=== PATIENT | female | born 1950 | race Caucasian/White ===

== ENCOUNTER 2016-12-27 16:40 | Emergency (ER) | payer OTHER, BC, MEDICARE ==
[2016-12-27] MEDS ORDERED: XYLOCAINE 2% HCL 20 ML MDV ONE ×2 (17:18→17:46)
[2016-12-27] MEDS ORDERED: XYLOCAINE 2% HCL 20 ML MDV IJ ONE (17:41)
[2016-12-27] MEDS ORDERED: BACIGUENT PACKET TP ONE (17:47)
--- NOTE | 2016-12-27 17:47 | ERPHSYRPT ---
- History of Present Illness Time Seen by Provider: 12/27/16 17:25 Source: patient Exam Limitations: clinical condition Patient Subjective Stated Complaint: cut her finger on knife at [facility] Triage Nursing Assessment: adalid has 1.2 cm laceration on middle finger of left hand, cap refill immediate, feeling present in finger. laceration is right in bend of finger Physician History: PATIENT SUSTAINED A LACERATION TO LEFT MIDDLE FINGER OFF KNIFE AT STORE. DENIES NUMBNESS, TINGLING OR WEAKNESS IN DIGIT. Occurred: just prior to arrival Method of Injury: incised Quality: constant Severity of Pain-Max: mild Severity of Pain-Current: mild Extremities Pain Location: 3rd finger: left Associated Symptoms: none Allergies/Adverse Reactions: metformin Allergy (Verified 12/27/16 16:56) Home Medications: Atorvastatin Calcium [Lipitor 20MG Tablet] 20 mg PO HS 12/27/16 [History] Valsartan [Diovan] 80 mg PO DAILY 12/27/16 [History] Vit A/Vit C/Vit E/Zinc/Copper [Icaps Areds Formula Tablet] 1 each PO BID [History] Hx Tetanus, Diphtheria Vaccination/Date Given: Yes Hx Influenza Vaccination/Date Given: No Hx Pneumococcal Vaccination/Date Given: No Immunizations Up to Date: Yes - Review of Systems Constitutional: No Symptoms Musculoskeletal: Injury, Other (LACERATION) - Past Medical History Pertinent Past Medical History: Yes Neurological History: No Pertinent History Cardiac History: Hypertension Respiratory History: No Pertinent History Endocrine Medical History: Diabetes Type II GI Medical History: No Pertinent History Psycho-Social History: Anxiety, Depression Female Reproductive Disorders: No Pertinent History - Past Surgical History Past Surgical History: Yes Female Surgical History: Dilation & Curettage - Social History Smoking Status: Current every day smoker Drug Use: none - Nursing Vital Signs Nursing Vital Signs: Initial Vital Signs Pain Intensity 4 - Physical Exam General Appearance: no apparent distress Hand Exam: soft tissue tenderness (THERE IS A 8MM LACERATION VOLAR ASPECT MCP RADIAL ASPECT, NO EVIDENCE OF FOREIGN BODY OR TENDON LACERATION, THERE IS FULL RANGE OF MOTION MCP, PIP AND DIP JOINT) DTR - Upper Extremity Exam: bicep (R): 2+, bicep (L): 2+, tricep (R): 2+, tricep (L): 2+ Neuro/Tendon Exam: normal sensation Mental Status Exam: alert, oriented x 3 SpO2 Interpretation: normal SpO2: 98 Oxygen Delivery: Room Air Procedures - Laceration/Wound Repair Left Hand Wound Location: Left (MIDDLE FINGER) Wound Length (cm): 0.8 Wound's Depth, Shape: linear Wound Explored: clean Irrigated: Yes Hibiclens Prep: Yes Anesthesia: digital block, 2% Lidocaine Volume Anesthetic (ccs): 4 Suture Size/Type: 4-0, nylon Number of Sutures: 3 Sterile Dressing Applied?: Yes Ordered Tests: Medication Summary Discontinued Medications Generic Name Dose Route Start Last Admin Trade Name Kristen PRN Reason Stop Dose Admin Lidocaine HCl Confirm 12/27/16 17:18 Xylocaine 2% Hcl 20 Ml Mdv Administered 12/27/16 17:19 Dose 5 [facility] - Departure Time of Disposition: 18:00 Departure Disposition: Home Clinical Impression: LACERATION LEFT MIDDLE FINGER Condition: Stable Critical Care Time: No Instructions: Care for a Laceration After Repair Additional Instructions: ANTIBIOTIC KEFLEX 500MG EVERY 8 HOURS FOR 7 DAYS. TYLENOL OR MOTRIN FOR PAIN NEEDED. HAVE STITCHES REMOVED AT 10 DAYS. CLEANSE WITH SOAK AND WATER 3-4 TIMES DAILY. WATCH FOR SIGNS OF INFECTION REDNESS, SWELLING OR DRAINAGE. Prescriptions: Cephalexin Mh 500 mg [Keflex 500 mg] 500 mg PO TID #210 capsule
[2016-12-27] MEDS ORDERED: BACIGUENT PACKET ONE (17:49)
[2016-12-27 17:54] VITALS: BP 135/89; PULSE 88
[2016-12-27 17:55] VITALS: O2SAT 98
== END 2016-12-27 18:16 | disposition home or self-care (01) ==
LOC: ED 16:40
PROC: 0HQGXZZ Repair Left Hand Skin, External Approach (ICD-10-PCS; principal; 2016-12-27)
DX: S61.213A Laceration without foreign body of left middle finger without damage to nail, initial encounter (principal); W26.0XXA Contact with knife, initial encounter
CPT/HCPCS: 12001; 99284; A9270-GY

== ENCOUNTER 2017-11-18 05:46 | Day surgery (SDC) | payer MEDICARE ==
[2017-11-18] MEDS ORDERED: DIPRIVAN 200 MG/20 ML IV ONE (05:47)
[2017-11-18] MEDS ORDERED: Ketamine HCl 50 MG/ML IV ONE (05:47)
[2017-11-18] MEDS ORDERED: Lactated Ringers 1,000 ML IV ONE (06:12)
[2017-11-18] MEDS ORDERED: Lactated Ringers 1,000 ML IV SCH (06:30)
--- NOTE | 2017-11-18 08:39 | OP ---
SURGERY DATE/TIME: 11/18/2017 0731 PREOPERATIVE DIAGNOSIS: Screening exam. POSTOPERATIVE DIAGNOSIS: Mild sigmoid diverticulosis otherwise normal colon. PROCEDURE: Colonoscopy. SURGEON: Dr. Barrios. ANESTHESIA: MAC. Medications given by anesthesia department. HISTORY: The patient is a 67 year-old white female presenting now for endoscopic evaluation. She reports she had previous colonoscopy at age 50. No problems were found at that time. The patient now presents for re-evaluation. She was appraised of the risks of the procedure including the risk of perforation, phlebitis, untoward reaction to medication, bleeding and missed lesions. The patient verbalized her understanding and desired to have the procedure performed. DESCRIPTION OF PROCEDURE: The patient was given the medications by the anesthesia department. She had continuous pulse oximetry, ECG monitoring, intermittent blood pressure monitoring and tidal CO2 monitoring during the examination. She was placed in the left lateral decubitus position. A digital rectal examination was performed and revealed normal anal sphincter tone and no masses. The flexible Olympus pediatric colonoscope was used to intubate the rectum. A view of the colon was developed sequentially to the cecum. Upon insertion and withdrawal, including a retroflex view in the rectum was noted a few sigmoid diverticula otherwise no mucosal lesions were encountered. The scope was removed from the patient who tolerated the procedure well and was sent back to OP recovery in good condition. The prep was noted to be fair to good.
[2017-11-18 20:12] VITALS: O2SAT 97
[2017-11-18 20:13] VITALS: BP 122/77; PULSE 62
== END 2017-11-18 09:10 | disposition home or self-care (01) ==
LOC: SDC 05:46
PROVIDERS: ATTEND Family Medicine
DX: Z12.11 Encounter for screening for malignant neoplasm of colon (principal); K57.30 Diverticulosis of large intestine without perforation or abscess without bleeding
CPT/HCPCS: J2704

== ENCOUNTER 2021-06-23 23:21 | Observation (INO) | payer MEDICARE ==
[2021-06-23 23:41] LABS: Absolute Neutrophil Ct (ANC) 11.48 (1.4-6.9); BASOPHIL % 0.2 % (0.0-0.4); Basophil (Absolute #) 0.03 (0-0.4); Eosinophil % 1.6 % (0.00-5.0); Eosinophil (Absolute #) 0.26 (0-0.5); Hematocrit 43.2 % (35-47); Hemoglobin 13.9 gm/dl (12.0-16.0); Lymphocytes % 22.8 % (24.0-44.0); Mean Cell Volume 98.2 fl (78-100); Mean Corpuscular Hemoglobin 31.6 pg (26-32); Mean Corpuscular Hgb Concent. 32.2 g/dl (32-36); Mean Platelet Volume 10.6 fl (7.5-11.0); Monocyte (Absolute #) 1.09 (0.0-1.3); Monocytes % 6.5 % (0.0-12.0); Neutrophil % 68.9 % (36.0-66.0); Platelet Count 260 K/mm3 (150-450); Red Cell Distribution Width 13.9 % (11.5-14.0); White Blood Count 16.7 K/mm3 (4.0-10.5)
[2021-06-24] MEDS ORDERED: BABY ASPIRIN 81 MG CHEW PO ONE
--- NOTE | 2021-06-24 00:01 | ERPHSYRPT ---
- History of Present Illness Time Seen by Provider: 06/23/21 23:22 Patient Subjective Stated Complaint: I was watching tv and I started having a pain between my shoulder blades, then went to my neck and rt arm, then to my c hest and some sob. Triage Nursing Assessment: pt c/o chest pain (more to the rt shoulder area), which first occured around 2130 starting in her shoulder blades, then went to h er neck and rt arm, then to the chest and experienced some sob with it. Pt's pain is improved once arrived at hospital, rating pain a 2, and only has pain to the rt shoulder area at this time. Lungs clear, heart tones reg, abd soft with active bs x4 quad, nontender, no edema noted. Pt has a dry, nonprod cough. Pt also smokes just over 1PPD. Physician History: 70 years old female with history of tobacco abuse, COPD, hypertension presented in the ER with chief complaint of sudden onset of shoulder blade area pain moderate intensity with radiating to the anterior chest, neck and arm without any significant aggravating factors and partial relief after taking nitro. Minimal shortness of breath which is a little worse than usual COPD related. No fever or chills reported. Denies any history of CAD. Timing/Duration: hour(s) (2), constant, sudden, improved Activities at Onset: rest Quality: aching, sharpness Location: substernal, central, back Chest Pain Radiation: neck, arm Severity of Pain-Max: moderate Severity of Pain-Current: mild Modifying Factors: Improves With: nitroglycerin Associated Symptoms: denies symptoms Prior Chest Pain/Cardiac Workup: no prior chest pain Nitro Today/Relief: 0.4 mg x 1 Aspirin Treatment Today: unknown Allergies/Adverse Reactions: metformin Allergy (Verified 06/23/21 23:43) Home Medications: Valsartan [Diovan] 80 mg PO DAILY 12/27/16 [History] Vit A/Vit C/Vit E/Zinc/Copper [Icaps Areds Formula Dr Tablet] 1 each PO DAILY 12/27/16 [History] Cholecalciferol (Vitamin D3) [Vitamin D3] 1,000 unit PO UD 11/15/17 [History] Estradiol 1 mg [Estrace 1 mg] 1 mg PO DAILY 11/15/17 [History] Melatonin/Pyridoxine HCl (B6) [Melatonin Tr 10 mg Tablet] 10 mg PO HS 11/15/17 [History] Multivitamin [Multivitamins] 1 tab PO DAILY 11/15/17 [History] Ibuprofen 200 mg [Motrin 200 mg] 2 tab PO UD 11/18/17 [History] Hx Tetanus, Diphtheria Vaccination/Date Given: No Hx Influenza Vaccination/Date Given: No Hx Pneumococcal Vaccination/Date Given: Yes Immunizations Up to Date: No Travel Risk - International Travel Have you traveled outside of the country in past 3 weeks: No - Coronavirus Screening Are you exhibiting any of the following symptoms?: Yes Symptoms: Cough: New Onset, Shortness of Breath - Vaccine Status Have you recieved a Covid-19 vaccination: Yes 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: [employer] - Vaccination Dates Date of 2cond Vaccination (if applicable): 10/2020 - Review of Systems Constitutional: No Symptoms Eyes: No Symptoms Ears, Nose, & Throat: No Symptoms Respiratory: Cough Cardiac: Chest Pain Abdominal/Gastrointestinal: No Symptoms Genitourinary Symptoms: No Symptoms Musculoskeletal: No Symptoms Skin: No Symptoms Neurological: No Symptoms Psychological: No Symptoms Endocrine: No Symptoms Hematologic/Lymphatic: No Symptoms Immunological/Allergic: No Symptoms - Past Medical History Pertinent Past Medical History: Yes Neurological History: No Pertinent History ENT History: No Pertinent History Cardiac History: High Cholesterol, Hypertension Respiratory History: No Pertinent History Endocrine Medical History: Diabetes Type II Musculoskeletal History: No Pertinent History GI Medical History: No Pertinent History History: No Pertinent History Psycho-Social History: Anxiety, Depression Female Reproductive Disorders: No Pertinent History - Past Surgical History Past Surgical History: Yes Neuro Surgical History: No Pertinent History Cardiac: No Pertinent History Respiratory: No Pertinent History Gastrointestinal: No Pertinent History Genitourinary: No Pertinent History Musculoskeletal: No Pertinent History Female Surgical History: Dilation & Curettage - Social History Smoking Status: Current every day smoker How long have you smoked: 7 yrs Exposure to second hand smoke: Yes Drug Use: none Patient Lives Alone: No - Nursing Vital Signs Nursing Vital Signs: Initial Vital Signs Temperature 97.8 F 06/23/21 23:27 Pulse Rate 72 06/23/21 23:27 Respiratory Rate 18 06/23/21 23:27 Blood Pressure 133/75 06/23/21 23:27 O2 Sat by Pulse Oximetry 98 06/23/21 23:27 Pain Scale Pain Intensity 2 - Physical Exam General Appearance: no apparent distress, alert Eye Exam: PERRL/EOMI, eyes nml inspection Ears, Nose, Throat Exam: normal ENT inspection, TMs normal, pharynx normal Neck Exam: normal inspection, non-tender, supple, full range of motion Respiratory Exam: normal breath sounds, lungs clear Cardiovascular Exam: regular rate/rhythm, normal heart sounds Gastrointestinal/Abdomen Exam: soft, normal bowel sounds, No tenderness Back Exam: normal inspection, normal range of motion Extremity Exam: normal inspection, normal range of motion, pelvis stable Neurologic Exam: alert, oriented x 3, 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, 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 Skin Exam: normal color SpO2 Interpretation: normal SpO2: 98 O2 Delivery: Room Air - Course EKG Interpreted by Me: RATE (75), Sinus Rhythm, NORMAL AXIS, NORMAL INTERVALS, Non-specific ST Changes, Other (Nonspecific T wave changes) Ordered Tests: Active Orders 24 hr Category Date Time Status CHEST 1 VIEW (PORTABLE) Stat Exams 06/23/21 23:23 Taken CBC W DIFF Stat Lab 06/23/21 23:30 Completed CMP Stat Lab 06/23/21 23:30 Completed D-DIMER QUANTITATIVE Stat Lab 06/24/21 00:03 Completed NT PRO BNP Stat Lab 06/23/21 23:30 Completed TROPONIN Q3H Lab 06/23/21 23:30 Completed TROPONIN Q3H Lab 06/24/21 02:30 Ordered TROPONIN Q3H Lab 06/24/21 05:30 Ordered TROPONIN Q3H Lab 06/24/21 08:30 Ordered TROPONIN Q3H Lab 06/24/21 11:30 Ordered Respiratory Therapy Assessment DAILY RT 06/24/21 00:40 Completed Medication Summary Discontinued Medications Generic Name Dose Route Start Last Admin Trade Name Freq PRN Reason Stop Dose Admin Albuterol/Ipratropium 3 ml 06/24/21 00:03 06/24/21 00:43 Ipratropium/Albuterol Sulfate 3 Ml Ampul.Neb IH 06/24/21 00:04 3 ml STAT ONE Administration Albuterol/Ipratropium Confirm 06/24/21 00:40 Ipratropium/Albuterol Sulfate 3 Ml Ampul.Neb Administered 06/24/21 00:41 Dose 3 ml IH .STK-MED ONE Aspirin 324 mg 06/24/21 00:00 06/24/21 00:17 Aspirin 81 Mg Tab.Chew PO 06/24/21 00:01 324 mg STAT ONE Administration Lab/Rad Data: Laboratory Result Diagrams 06/23/21 23:30 06/23/21 23:30 Laboratory Results 06/24/21 06/23/21 06/23/21 Range/Units 00:03 23:30 23:30 WBC (4.0-10.5) K/mm3 RBC (4.1-5.4) M/mm3 Hgb (12.0-16.0) gm/dl Hct (35-47) % MCV (78-100) fl MCH (26-32) pg MCHC (32-36) g/dl RDW (11.5-14.0) % Plt Count (150-450) K/mm3 MPV (7.5-11.0) fl Gran % (36.0-66.0) % Eos # (Auto) (0-0.5) Absolute Lymphs (auto) (1.0-4.6) Absolute Monos (auto) (0.0-1.3) Lymphocytes % (24.0-44.0) % Monocytes % (0.0-12.0) % Eosinophils % (0.00-5.0) % Basophils % (0.0-0.4) % Absolute Granulocytes (1.4-6.9) Basophils # (0-0.4) D-Dimer 449 (215-500) ng/mL Sodium 136 L (137-145) mmol/L Potassium 4.3 (3.5-5.1) mmol/L Chloride 104 (98-107) mmol/L Carbon Dioxide 25 (22-30) mmol/L Anion Gap 10.3 (5-15) MEQ/L BUN 20 H (7-17) mg/dL Creatinine 0.74 (0.52-1.04) mg/dL Estimated GFR > 60.0 ML/MIN Glucose 122 H (74-106) mg/dL Calcium 9.4 (8.4-10.2) mg/dL Total Bilirubin 0.40 (0.2-1.3) mg/dL AST 27 (14-36) U/L ALT 19 (0-35) U/L Alkaline Phosphatase 60 (38-126) U/L Troponin I < 0.012 (0.000-0.034) ng/mL NT-Pro-B Natriuret Pep 86.3 (0-900) pg/mL Serum Total Protein 6.7 (6.3-8.2) g/dL Albumin 4.0 (3.5-5.0) g/dL 06/23/21 Range/Units 23:30 WBC 16.7 H (4.0-10.5) K/mm3 RBC 4.40 (4.1-5.4) M/mm3 Hgb 13.9 (12.0-16.0) gm/dl Hct 43.2 (35-47) % MCV 98.2 (78-100) fl MCH 31.6 (26-32) pg MCHC 32.2 (32-36) g/dl RDW 13.9 (11.5-14.0) % Plt Count 260 (150-450) K/mm3 MPV 10.6 (7.5-11.0) fl Gran % 68.9 H (36.0-66.0) % Eos # (Auto) 0.26 (0-0.5) Absolute Lymphs (auto) 3.80 (1.0-4.6) Absolute Monos (auto) 1.09 (0.0-1.3) Lymphocytes % 22.8 L (24.0-44.0) % Monocytes % 6.5 (0.0-12.0) % Eosinophils % 1.6 (0.00-5.0) % Basophils % 0.2 (0.0-0.4) % Absolute Granulocytes 11.48 H (1.4-6.9) Basophils # 0.03 (0-0.4) D-Dimer (215-500) ng/mL Sodium (137-145) mmol/L Potassium (3.5-5.1) mmol/L Chloride (98-107) mmol/L Carbon Dioxide (22-30) mmol/L Anion Gap (5-15) MEQ/L BUN (7-17) mg/dL Creatinine (0.52-1.04) mg/dL Estimated GFR ML/MIN Glucose (74-106) mg/dL Calcium (8.4-10.2) mg/dL Total Bilirubin (0.2-1.3) mg/dL AST (14-36) U/L ALT (0-35) U/L Alkaline Phosphatase (38-126) U/L Troponin I (0.000-0.034) ng/mL NT-Pro-B Natriuret Pep (0-900) pg/mL Serum Total Protein (6.3-8.2) g/dL Albumin (3.5-5.0) g/dL - Progress Progress: improved Air Movement: good Progress Note: 06/24/21 01:47 70 years old is evaluated for intermittent chest pain. EKG did not show any acute ST elevation and has negative initial troponin and D-dimer. She is given aspirin and she is feeling better. Her blood pressure is on the lower side, will use nitro cautiously. Does not want any other pain medications. Chest x- ray did not show any acute infiltrative process/CHF reviewed by me, official report is pending. Has multiple risk factors, no recent cardiac work-up done, discussed with Dr. Mendez and patient is being admitted for observation. Blood Culture(s) Obtained: No Antibiotics given: No Discussed with : Hanna Will see patient in: hospital (observation) Counseled pt/family regarding: lab results, diagnosis, rad results, smoking cessation - Departure Departure Disposition: Observation Clinical Impression: Chest pain, rule out acute myocardial infarction Condition: Stable Critical Care Time: No Referrals: CHAMP PRAKASH NP [Primary Care Provider] - Follow up/PCP as directed
[2021-06-24 00:02] LABS: ALKALINE PHOSPHATASE 60 U/L (38-126); ANION GAP 10.3 MEQ/L (5-15); BLOOD UREA NITROGEN 20 mg/dL (7-17); CHLORIDE 104 mmol/L (98-107); Calcium 9.4 mg/dL (8.4-10.2); Carbon Dioxide 25 mmol/L (22-30); Creatinine 1 0.74 mg/dL (0.52-1.04); EST GLOMERULAR FILTRATION RATE > 60.0 ML/MIN; Glucose 122 mg/dL (74-106); NT PRO BNP 86.3 pg/mL (0-900); Potassium 4.3 mmol/L (3.5-5.1); SGOT/AST 27 U/L (14-36); SGPT/ALT 19 U/L (0-35); SODIUM 136 mmol/L (137-145); Total Protein 6.7 g/dL (6.3-8.2)
[2021-06-24] MEDS ORDERED: DUONEB 0.5-3 MG/3 ml Neb IH ONE ×2 (00:03→00:40)
[2021-06-24 03:26] LABS: INFLUENZA A NEGATIVE (NEGATIVE); INFLUENZA B NEGATIVE (NEGATIVE); RESPIRATORY SYNCTIAL VIRUS NEGATIVE (Negative); SARS-CoV-2 Xpert Express NEGATIVE (NEGATIVE)
[2021-06-24] MEDS ORDERED: MORPHINE SULFATE 2 MG INJ IV PRN (04:33)
[2021-06-24] MEDS ORDERED: Zofran 4 MG/2 ML VIAL IV PRN (04:33)
[2021-06-24] MEDS ORDERED: TYLENOL 325 MG PO PRN (04:33)
[2021-06-24] MEDS ORDERED: DUONEB 0.5-3 MG/3 ml Neb IH PRN (06:00)
[2021-06-24] MEDS ORDERED: DUONEB 0.5-3 MG/3 ml Neb IH SCH (07:00)
[2021-06-24 07:48] VITALS: BP 104/63; PULSE 65; O2SAT 93
--- NOTE | 2021-06-24 08:55 | XRAY ---
Indication: Chest pain. Comparison: November 27, 2010. Portable chest remains clear. Heart and mediastinal structures within normal limits. Bony thorax intact. No new/acute findings.
--- NOTE | 2021-06-24 09:38 | PCM.SSS ---
History of Present Illness - Chief Complaint Chief Complaint: Chest pain rule out History of Present Illness: is a 70 year old female pt of [facility] with COPD, TOB abuse and HTN who was admitted through ER with chest pain to rule out RI. She had an argument with her son, who is living with her, and after that she was watching TV and had 9-10/10 pain between her shoulder blades, that then radiated around to the neck and R arm, then became substernal pressure, 7/10, which waxed and waned. Did c /o SOB. Had partial relief with nitro. No nausea or palpitations. In ER, her WBC were elevated at 16.7. Her sodium slightly low at 136. Troponins have been neg x 2. Her EKG was nonacute. She smokes for the past 7 yrs, and used to smoke 2PPD for years (did quit for some years). Drinks occasional alcohol. DOes have family hx of CVA (mom had hemorrhagic stroke, and maternal grandfather had occlusive CVA). Pt had a heart cath over a year ago with Dr. Figueroa. - Review of Systems Respiratory: Cough (chronic, productive), Short Of Breath Cardiac: Chest Pain Abdominal/Gastrointestinal: Diarrhea (was frequent, better with probiotic) Psychological: Anxiety, Depression (no suicidal or homicidal ideation) All Other Systems: Reviewed and Negative Medications & Allergies Home Medications: Home Medication List Valsartan [Diovan] 80 mg PO DAILY 12/27/16 [History Confirmed 06/23/21] Vit A/Vit C/Vit E/Zinc/Copper [Icaps Areds Formula Dr Tablet] 1 each PO DAILY 12/27/16 [History Confirmed 06/23/21] Cholecalciferol (Vitamin D3) [Vitamin D3] 1,000 unit PO UD 11/15/17 [History Confirmed 06/23/21] Estradiol 1 mg [Estrace 1 mg] 1 mg PO DAILY 11/15/17 [History Confirmed 06/23/21] Melatonin/Pyridoxine HCl (B6) [Melatonin Tr 10 mg Tablet] 10 mg PO HS 11/15/17 [History Confirmed 06/23/21] Multivitamin [Multivitamins] 1 tab PO DAILY 11/15/17 [History Confirmed 06/23/21] Ibuprofen 200 mg [Motrin 200 mg] 2 tab PO UD 11/18/17 [History Confirmed 06/23/21] Allergies/Adverse Reactions: Allergies Allergy/AdvReac Type Severity Reaction Status Date / Time metformin Allergy Verified 06/23/21 23:43 - Past Medical History Past Medical History: Yes Neurological History: No Pertinent History ENT History: No Pertinent History Cardiac History: High Cholesterol, Hypertension Respiratory History: No Pertinent History Endocrine Medical History: Diabetes Type II Musculoskelatal History: No Pertinent History GI Medical History: No Pertinent History History: No Pertinent History Pyscho-Social History: Anxiety, Depression Reproductive Disorders: No Pertinent History - Female History Are you now?: No - Past Surgical History Past Surgical History: Yes Neuro Surgical History: No Pertinent History Cardiac History: No Pertinent History Respiratory Surgery: No Pertinent History GI Surgical History: No Pertinent History Genitourinary Surgical Hx: No Pertinent History Musculskeletal Surgical Hx: No Pertinent History Female Surgical History: Dilation & Curettage - Social History Smoking Status: Current every day smoker How long have you smoked: 7 yrs Exposure to second hand smoke: Yes Alcohol: Rarely Drug Use: none - Physical Exam Vital Signs: Vital Signs - 24 hr Temp Pulse Pulse Resp BP Pulse Ox 06/24/21 07:48 98.4 F 65 16 104/63 93 L 06/24/21 04:39 98.2 F 66 16 112/67 96 06/24/21 04:00 68 15 100/62 95 06/24/21 03:00 68 18 95/54 92 L 06/24/21 02:25 78 18 103/68 92 L 06/24/21 01:48 98 06/24/21 01:02 74 16 97/57 94 L 06/24/21 00:43 72 24 96 06/24/21 00:34 71 18 115/66 95 06/23/21 23:30 74 06/23/21 23:27 97.8 F 72 18 133/75 98 General Appearance: no apparent distress, alert Neurologic Exam: oriented x 3, cooperative Eye Exam: eyes nml inspection Ears, Nose, Throat Exam: moist mucous membranes Neck Exam: normal inspection, non-tender, No lymphadenopathy Respiratory Exam: normal breath sounds, lungs clear, No crackles/rales, No rhonchi, No wheezing Cardiovascular Exam: regular rate/rhythm, normal heart sounds, No murmur Gastrointestinal/Abdomen Exam: soft, normal bowel sounds, No tenderness, No d istention, No mass, No guarding, No rebound Back Exam: normal inspection, No CVA tenderness, No rash Extremity Exam: normal inspection, No pedal edema, No swelling Skin Exam: normal color, warm, dry, No rash Results - Labs Lab/Micro Results: Lab Results-Last 24 Hours 06/23/21 06/23/21 06/23/21 Range/Units 23:30 23:30 23:30 WBC 16.7 H (4.0-10.5) K/mm3 RBC 4.40 (4.1-5.4) M/mm3 Hgb 13.9 (12.0-16.0) gm/dl Hct 43.2 (35-47) % MCV 98.2 (78-100) fl MCH 31.6 (26-32) pg MCHC 32.2 (32-36) g/dl RDW 13.9 (11.5-14.0) % Plt Count 260 (150-450) K/mm3 MPV 10.6 (7.5-11.0) fl Gran % 68.9 H (36.0-66.0) % Eos # (Auto) 0.26 (0-0.5) Absolute Lymphs (auto) 3.80 (1.0-4.6) Absolute Monos (auto) 1.09 (0.0-1.3) Lymphocytes % 22.8 L (24.0-44.0) % Monocytes % 6.5 (0.0-12.0) % Eosinophils % 1.6 (0.00-5.0) % Basophils % 0.2 (0.0-0.4) % Absolute Granulocytes 11.48 H (1.4-6.9) Basophils # 0.03 (0-0.4) D-Dimer (215-500) ng/mL Sodium 136 L (137-145) mmol/L Potassium 4.3 (3.5-5.1) mmol/L Chloride 104 (98-107) mmol/L Carbon Dioxide 25 (22-30) mmol/L Anion Gap 10.3 (5-15) MEQ/L BUN 20 H (7-17) mg/dL Creatinine 0.74 (0.52-1.04) mg/dL Estimated GFR > 60.0 ML/MIN Glucose 122 H (74-106) mg/dL Calcium 9.4 (8.4-10.2) mg/dL Total Bilirubin 0.40 (0.2-1.3) mg/dL AST 27 (14-36) U/L ALT 19 (0-35) U/L Alkaline Phosphatase 60 (38-126) U/L Troponin I < 0.012 (0.000-0.034) ng/mL NT-Pro-B Natriuret Pep 86.3 (0-900) pg/mL Serum Total Protein 6.7 (6.3-8.2) g/dL Albumin 4.0 (3.5-5.0) g/dL Influenza Type A Ag (NEGATIVE) Influenza Type B Ag (NEGATIVE) RSV (PCR) (Negative) SARS-CoV-2 (PCR) (NEGATIVE) 06/24/21 06/24/21 06/24/21 Range/Units 00:03 02:47 02:47 WBC (4.0-10.5) K/mm3 RBC (4.1-5.4) M/mm3 Hgb (12.0-16.0) gm/dl Hct (35-47) % MCV (78-100) fl MCH (26-32) pg MCHC (32-36) g/dl RDW (11.5-14.0) % Plt Count (150-450) K/mm3 MPV (7.5-11.0) fl Gran % (36.0-66.0) % Eos # (Auto) (0-0.5) Absolute Lymphs (auto) (1.0-4.6) Absolute Monos (auto) (0.0-1.3) Lymphocytes % (24.0-44.0) % Monocytes % (0.0-12.0) % Eosinophils % (0.00-5.0) % Basophils % (0.0-0.4) % Absolute Granulocytes (1.4-6.9) Basophils # (0-0.4) D-Dimer 449 (215-500) ng/mL Sodium (137-145) mmol/L Potassium (3.5-5.1) mmol/L Chloride (98-107) mmol/L Carbon Dioxide (22-30) mmol/L Anion Gap (5-15) MEQ/L BUN (7-17) mg/dL Creatinine (0.52-1.04) mg/dL Estimated GFR ML/MIN Glucose (74-106) mg/dL Calcium (8.4-10.2) mg/dL Total Bilirubin (0.2-1.3) mg/dL AST (14-36) U/L ALT (0-35) U/L Alkaline Phosphatase (38-126) U/L Troponin I < 0.012 (0.000-0.034) ng/mL NT-Pro-B Natriuret Pep (0-900) pg/mL Serum Total Protein (6.3-8.2) g/dL Albumin (3.5-5.0) g/dL Influenza Type A Ag NEGATIVE (NEGATIVE) Influenza Type B Ag NEGATIVE (NEGATIVE) RSV (PCR) NEGATIVE (Negative) SARS-CoV-2 (PCR) NEGATIVE (NEGATIVE) 06/24/21 06/24/21 Range/Units 06:48 08:35 WBC (4.0-10.5) K/mm3 RBC (4.1-5.4) M/mm3 Hgb (12.0-16.0) gm/dl Hct (35-47) % MCV (78-100) fl MCH (26-32) pg MCHC (32-36) g/dl RDW (11.5-14.0) % Plt Count (150-450) K/mm3 MPV (7.5-11.0) fl Gran % (36.0-66.0) % Eos # (Auto) (0-0.5) Absolute Lymphs (auto) (1.0-4.6) Absolute Monos (auto) (0.0-1.3) Lymphocytes % (24.0-44.0) % Monocytes % (0.0-12.0) % Eosinophils % (0.00-5.0) % Basophils % (0.0-0.4) % Absolute Granulocytes (1.4-6.9) Basophils # (0-0.4) D-Dimer (215-500) ng/mL Sodium (137-145) mmol/L Potassium (3.5-5.1) mmol/L Chloride (98-107) mmol/L Carbon Dioxide (22-30) mmol/L Anion Gap (5-15) MEQ/L BUN (7-17) mg/dL Creatinine (0.52-1.04) mg/dL Estimated GFR ML/MIN Glucose (74-106) mg/dL Calcium (8.4-10.2) mg/dL Total Bilirubin (0.2-1.3) mg/dL AST (14-36) U/L ALT (0-35) U/L Alkaline Phosphatase (38-126) U/L Troponin I < 0.012 < 0.012 (0.000-0.034) ng/mL NT-Pro-B Natriuret Pep (0-900) pg/mL Serum Total Protein (6.3-8.2) g/dL Albumin (3.5-5.0) g/dL Influenza Type A Ag (NEGATIVE) Influenza Type B Ag (NEGATIVE) RSV (PCR) (Negative) SARS-CoV-2 (PCR) (NEGATIVE) - Radiology Impressions Radiology Exams & Impressions: Radiology Procedures Category Date Time Status CHEST 1 VIEW (PORTABLE) Stat Exams 06/23/21 23:23 Completed - Other Procedures and Tests Respiratory Therapy 06/24/21 00:40 Respiratory Therapy Assessment DAILY Assessment/Plan (1) Chest pain, rule out acute myocardial infarction Current Visit: Yes Status: Acute Assessment & Plan: Troponins are neg x 2 - if they continue to be negative x 5, will discharge pt to home and do outpatient stress test. Code(s): R07.9 - CHEST PAIN, UNSPECIFIED (2) HTN (hypertension) Current Visit: Yes Status: Chronic Qualifiers: Hypertension type: primary hypertension Qualified Code(s): I10 - Essential (primary) hypertension Code(s): I10 - ESSENTIAL (PRIMARY) HYPERTENSION (3) COPD (chronic obstructive pulmonary disease) Current Visit: Yes Status: Chronic Qualifiers: COPD type: emphysema Emphysema type: panlobular Qualified Code(s): J43.1 - Panlobular emphysema (4) Tobacco abuse Current Visit: Yes Status: Chronic Code(s): Z72.0 - TOBACCO USE Hospital Summary - Hospital Course Hospital Course: Pt is 70 yo female with tobacco abuse, COPD, and HTN who was admitted with chest pain. Troponins neg so far; if they continue to be neg, she will be sent home to f/u with PCP and do op stress test. Advised her to quit smoking. - Vitals & Intake/Output Vital Signs: Vital Signs Temperature 98.4 F 06/24/21 07:48 Pulse Rate 65 06/24/21 07:48 Respiratory Rate 16 06/24/21 07:48 Blood Pressure 104/63 06/24/21 07:48 O2 Sat by Pulse Oximetry 93 L 06/24/21 07:48 Intake & Output: Intake & Output 06/21/21 06/22/21 06/23/21 06/24/21 11:59 11:59 11:59 11:59 Weight 62.7 kg - Lab Result Diagrams: 06/23/21 23:30 06/23/21 23:30 Lab Results-Last 24 Hrs: Lab Results-Last 24 Hours 06/23/21 06/23/21 06/23/21 Range/Units 23:30 23:30 23:30 WBC 16.7 H (4.0-10.5) K/mm3 RBC 4.40 (4.1-5.4) M/mm3 Hgb 13.9 (12.0-16.0) gm/dl Hct 43.2 (35-47) % MCV 98.2 (78-100) fl MCH 31.6 (26-32) pg MCHC 32.2 (32-36) g/dl RDW 13.9 (11.5-14.0) % Plt Count 260 (150-450) K/mm3 MPV 10.6 (7.5-11.0) fl Gran % 68.9 H (36.0-66.0) % Eos # (Auto) 0.26 (0-0.5) Absolute Lymphs (auto) 3.80 (1.0-4.6) Absolute Monos (auto) 1.09 (0.0-1.3) Lymphocytes % 22.8 L (24.0-44.0) % Monocytes % 6.5 (0.0-12.0) % Eosinophils % 1.6 (0.00-5.0) % Basophils % 0.2 (0.0-0.4) % Absolute Granulocytes 11.48 H (1.4-6.9) Basophils # 0.03 (0-0.4) D-Dimer (215-500) ng/mL Sodium 136 L (137-145) mmol/L Potassium 4.3 (3.5-5.1) mmol/L Chloride 104 (98-107) mmol/L Carbon Dioxide 25 (22-30) mmol/L Anion Gap 10.3 (5-15) MEQ/L BUN 20 H (7-17) mg/dL Creatinine 0.74 (0.52-1.04) mg/dL Estimated GFR > 60.0 ML/MIN Glucose 122 H (74-106) mg/dL Calcium 9.4 (8.4-10.2) mg/dL Total Bilirubin 0.40 (0.2-1.3) mg/dL AST 27 (14-36) U/L ALT 19 (0-35) U/L Alkaline Phosphatase 60 (38-126) U/L Troponin I < 0.012 (0.000-0.034) ng/mL NT-Pro-B Natriuret Pep 86.3 (0-900) pg/mL Serum Total Protein 6.7 (6.3-8.2) g/dL Albumin 4.0 (3.5-5.0) g/dL Influenza Type A Ag (NEGATIVE) Influenza Type B Ag (NEGATIVE) RSV (PCR) (Negative) SARS-CoV-2 (PCR) (NEGATIVE) 06/24/21 06/24/21 06/24/21 Range/Units 00:03 02:47 02:47 WBC (4.0-10.5) K/mm3 RBC (4.1-5.4) M/mm3 Hgb (12.0-16.0) gm/dl Hct (35-47) % MCV (78-100) fl MCH (26-32) pg MCHC (32-36) g/dl RDW (11.5-14.0) % Plt Count (150-450) K/mm3 MPV (7.5-11.0) fl Gran % (36.0-66.0) % Eos # (Auto) (0-0.5) Absolute Lymphs (auto) (1.0-4.6) Absolute Monos (auto) (0.0-1.3) Lymphocytes % (24.0-44.0) % Monocytes % (0.0-12.0) % Eosinophils % (0.00-5.0) % Basophils % (0.0-0.4) % Absolute Granulocytes (1.4-6.9) Basophils # (0-0.4) D-Dimer 449 (215-500) ng/mL Sodium (137-145) mmol/L Potassium (3.5-5.1) mmol/L Chloride (98-107) mmol/L Carbon Dioxide (22-30) mmol/L Anion Gap (5-15) MEQ/L BUN (7-17) mg/dL Creatinine (0.52-1.04) mg/dL Estimated GFR ML/MIN Glucose (74-106) mg/dL Calcium (8.4-10.2) mg/dL Total Bilirubin (0.2-1.3) mg/dL AST (14-36) U/L ALT (0-35) U/L Alkaline Phosphatase (38-126) U/L Troponin I < 0.012 (0.000-0.034) ng/mL NT-Pro-B Natriuret Pep (0-900) pg/mL Serum Total Protein (6.3-8.2) g/dL Albumin (3.5-5.0) g/dL Influenza Type A Ag NEGATIVE (NEGATIVE) Influenza Type B Ag NEGATIVE (NEGATIVE) RSV (PCR) NEGATIVE (Negative) SARS-CoV-2 (PCR) NEGATIVE (NEGATIVE) 06/24/21 06/24/21 Range/Units 06:48 08:35 WBC (4.0-10.5) K/mm3 RBC (4.1-5.4) M/mm3 Hgb (12.0-16.0) gm/dl Hct (35-47) % MCV (78-100) fl MCH (26-32) pg MCHC (32-36) g/dl RDW (11.5-14.0) % Plt Count (150-450) K/mm3 MPV (7.5-11.0) fl Gran % (36.0-66.0) % Eos # (Auto) (0-0.5) Absolute Lymphs (auto) (1.0-4.6) Absolute Monos (auto) (0.0-1.3) Lymphocytes % (24.0-44.0) % Monocytes % (0.0-12.0) % Eosinophils % (0.00-5.0) % Basophils % (0.0-0.4) % Absolute Granulocytes (1.4-6.9) Basophils # (0-0.4) D-Dimer (215-500) ng/mL Sodium (137-145) mmol/L Potassium (3.5-5.1) mmol/L Chloride (98-107) mmol/L Carbon Dioxide (22-30) mmol/L Anion Gap (5-15) MEQ/L BUN (7-17) mg/dL Creatinine (0.52-1.04) mg/dL Estimated GFR ML/MIN Glucose (74-106) mg/dL Calcium (8.4-10.2) mg/dL Total Bilirubin (0.2-1.3) mg/dL AST (14-36) U/L ALT (0-35) U/L Alkaline Phosphatase (38-126) U/L Troponin I < 0.012 < 0.012 (0.000-0.034) ng/mL NT-Pro-B Natriuret Pep (0-900) pg/mL Serum Total Protein (6.3-8.2) g/dL Albumin (3.5-5.0) g/dL Influenza Type A Ag (NEGATIVE) Influenza Type B Ag (NEGATIVE) RSV (PCR) (Negative) SARS-CoV-2 (PCR) (NEGATIVE) - Radiology Exams Ordered Rad Exams-Entire Visit: Radiology Procedures Category Date Time Status CHEST 1 VIEW (PORTABLE) Stat Exams 06/23/21 23:23 Completed - Procedures and Test Procedures and Tests throughout Hospitalization: Therapy Orders & Screens 06/24/21 00:40 Respiratory Therapy Assessment DAILY Comment: - Discharge Disposition: Home, Self-Care Condition: Good Prescriptions: No Action Vit A/Vit C/Vit E/Zinc/Copper [Icaps Areds Formula Dr Tablet] 1 each PO DAILY Valsartan [Diovan] 80 mg PO DAILY Cholecalciferol (Vitamin D3) [Vitamin D3] 1,000 unit PO UD Estradiol 1 mg [Estrace 1 mg] 1 mg PO DAILY Multivitamin [Multivitamins] 1 tab PO DAILY Melatonin/Pyridoxine HCl (B6) [Melatonin Tr 10 mg Tablet] 10 mg PO HS Ibuprofen 200 mg [Motrin 200 mg] 2 tab PO UD Follow up with: CHAMP PRAKASH NP [Primary Care Provider] -
[2021-06-24] MEDS ORDERED: MOTRIN 400 MG PO PRN (09:43)
[2021-06-24] MEDS ORDERED: MOTRIN 200 MG PO SCH (09:45)
[2021-06-24] MEDS ORDERED: Ocuvite Tablet PO SCH (10:00)
[2021-06-24] MEDS ORDERED: DIOVAN 80 MG PO SCH (10:00)
[2021-06-24] MEDS ORDERED: PROTONIX 40 MG IV IV SCH (10:00)
[2021-06-24] MEDS ORDERED: COPPER PO SCH (10:00)
[2021-06-24] MEDS ORDERED: ZINC PO SCH (10:00)
[2021-06-24] MEDS ORDERED: VITAMIN A PO SCH (10:00)
[2021-06-24] MEDS ORDERED: [UNRECOGNIZED DRUG - OTHER] PO SCH (10:00)
[2021-06-24] MEDS ORDERED: VITAMIN E PO SCH (10:00)
[2021-06-24] MEDS ORDERED: ESTRACE 1 MG PO SCH (10:00)
[2021-06-24] MEDS ORDERED: ASCORBIC ACID PO SCH (10:00)
[2021-06-24] MEDS ORDERED: MEDICATION INTERVENTION MC SCH (10:00)
[2021-06-24] MEDS ORDERED: [UNRECOGNIZED DRUG - OTHER] PO SCH (22:00)
[2021-06-24] MEDS ORDERED: MELATONIN PO SCH (22:00)
[2021-06-24] MEDS ORDERED: PYRIDOXINE HCL PO SCH (22:00)
== END 2021-06-24 11:00 | disposition home or self-care (01) ==
LOC: ED 23:21 → ICU 06-24 04:24
PROVIDERS: ADMIT Family Medicine; ATTEND Family Medicine
DX: R07.9 Chest pain, unspecified (principal); E11.9 Type 2 diabetes mellitus without complications; I10 Essential (primary) hypertension; E78.5 Hyperlipidemia, unspecified; J43.1 Panlobular emphysema; F17.200 Nicotine dependence, unspecified, uncomplicated; Z79.899 Other long term (current) drug therapy; Z20.828 Contact with and (suspected) exposure to other viral communicable diseases
CPT/HCPCS: 0241U; 36415; 71045; 80053; 83880; 84484; 85025; 85379; 93268; 94640; 99283; G0378; A9270-GY

== ENCOUNTER 2022-02-22 06:33 | Day surgery (SDC) | payer MEDICARE ==
[2022-02-22] MEDS ORDERED: XYLOCAINE-MPF 1% 5ML SDV IJ ONE (06:34)
[2022-02-22] MEDS ORDERED: Sensorcaine 0.25% 10 ML ONE (06:37)
[2022-02-22] MEDS ORDERED: Lactated Ringers 1,000 ML IV SCH (07:30)
[2022-02-22] MEDS ORDERED: CEFAZOLIN 2 GM-D5W BAG** 2 GM/50 ML ML IV SCH (07:30)
--- NOTE | 2022-02-22 09:48 | HP ---
DATE OF SURGERY: 02/22/2022 HISTORY OF PRESENT ILLNESS: The patient is a 71-year-old with no pain, had breast cancer. 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 The patient is interested in breast conservative therapy. Her oncologist is additionally requesting [place] lymph node biopsy in the same setting. PAST MEDICAL HISTORY: Hypertension, diabetes as well the breast ductal carcinoma in situ. PAST SURGICAL HISTORY: D&C in the past. Tonsillectomy and adenoidectomy. D&C. MEDICATIONS: Valsartan, I-Caps, vitamin D3, melatonin, cetirizine, methylsulfonylmethane (MSM) for bone and joint, calcifediol, Stress tabs, ibuprofen, lactic acid, probiotic, Estradiol in the past but has stopped since being diagnosed with DCIS. She has been Estrofem and PMG as well. ALLERGIES: METFORMIN (RASH). FAMILY HISTORY: Breast cancer. Stroke. Atrial fibrillation. Diabetes. SOCIAL HISTORY: One pack per day smoker. Occasional alcohol use. REVIEW OF SYSTEMS: Fourteen systems reviewed. No chest pain or palpitations. Other systems negative or noncontributory as above and per preadmission questionnaire. PHYSICAL EXAMINATION: GENERAL: No acute distress. HEENT: Sclerae nonicteric. NECK: No JVD. CHEST: Equal excursion, nonlabored breathing. CVS: Regular rate and rhythm. BREAST: No palpable masses. She has induration at both biopsy sites on the left breast. No palpable adenopathy currently. ABDOMEN: Soft. No peritoneal signs. EXTREMITIES: No significant edema. NEURO: Alert, oriented, moving extremities symmetrically. RECTAL: Deferred timed to endoscopy exam. PSYCH: Appropriate mood and affect. IMPRESSION: Left breast ductal carcinoma in situ. Dr. Hernandez is requesting left breast lumpectomy, prior needle placement as well as [place] lymph node biopsy. General risk of bleeding or infection, risk of missing the lesion or inability of radiology to place the line in appropriate position possibly requiring other procedures. Risk of bleeding or infection, general risk of bleeding or infection, risk of hematoma or seromal formation, risk of nerve irritation, scar formation, risk of numbness or weakness of upper extremities or shoulder, risk of lymph edema, general risk of aches or pains possibly chronic in nature, risk of involved margins, possible malignancy that might require other procedures. She understands and agrees to the planned procedure. We will proceed with left breast lumpectomy with prior needle placement [place] lymph node biopsy as an outpatient.
[2022-02-22] MEDS ORDERED: Versed 2 MG/2 ML Injection IV ONE (12:19)
--- NOTE | 2022-02-22 13:10 | XRAY ---
Indication: Left breast cancer. 4 subcutaneous left periareolar injections performed totaling 822 Ci. Delayed anterior and lateral planar images obtained. There a single focus of radiopharmaceutical activity identified in the axilla. Impression: Single focus of radiopharmaceutical activity in the axilla.
[2022-02-22] MEDS ORDERED: TORAdol 30 mg Injection ONE (13:15)
[2022-02-22] MEDS ORDERED: Zemuron 100 MG/10 ML ONE (13:15)
[2022-02-22] MEDS ORDERED: Xylocaine-Mpf 2% 5 Ml Vial ONE ×2 (13:15→14:48)
[2022-02-22] MEDS ORDERED: Decadron 4 MG INJ ONE ×2 (13:15→14:48)
[2022-02-22] MEDS ORDERED: Zofran 4 MG/2 ML VIAL ONE (13:15)
[2022-02-22] MEDS ORDERED: DIPRIVAN 200 MG/20 ML IV ONE (13:15)
[2022-02-22] MEDS ORDERED: SUBLIMAZE 100 MCG/2 ML ONE (13:15)
[2022-02-22] MEDS ORDERED: BRIDION 200MG/2ML IV ONE (13:15)
[2022-02-22] MEDS ORDERED: Lactated Ringers 1,000 ML IV ONE (13:42)
[2022-02-22] MEDS ORDERED: PHENYLEPHRINE HCL ONE (13:50)
[2022-02-22] MEDS ORDERED: Ephedrine Sulfate 50 MG/ML ONE (14:03)
--- NOTE | 2022-02-22 14:28 | XRAY ---
Indication: Needle wire localization for ultrasound biopsy-proven 12:00 left breast cancer. Informed consent obtained. Left breast was prepped and draped in sterile fashion. 1% lidocaine plain used for local anesthesia. A 20-gauge [place] needle was then percutaneously. Under ultrasound guidance, needle tip was advanced through the 12:00 breast mass. Ultimately a hooked wire was then inserted into the needle with the outer needle removed. Wire was secured and overlying bandage material applied. Patient was then taken to mammography for further imaging. Impression: Technically successful needle wire localization 12:00 breast mass using ultrasound guidance. No immediate complications.
--- NOTE | 2022-02-22 14:32 | XRAY ---
Indication: Surgical specimen following lumpectomy. A single specimen radiograph demonstrates intact katie wire with the suspicious left breast breast mass and mammotome clip present. Findings were reported to the surgeon.
--- NOTE | 2022-02-22 14:32 | XRAY ---
Indication: Ultrasound-guided needle wire localization 12:00 breast mass. Orthogonal digital mammogram of the left breast performed in CC and true lateral plane. Hook wire is immediately anterior to the mammotome clip in good position. No complication/hematoma. Impression: Technically successful needle wire localization 12:00 breast biopsy site/mass. No immediate complications.
[2022-02-22] MEDS ORDERED: Naropin 0.5% 30 ML VIAL ONE (14:48)
[2022-02-22 16:23] VITALS: PULSE 75
[2022-02-22 16:54] VITALS: BP 137/65; O2SAT 95
--- NOTE | 2022-02-23 08:15 | OP ---
SURGERY DATE/TIME: 02/22/2022 1323 PREOPERATIVE DIAGNOSIS: Left breast ductal carcinoma in situ. Request from oncologist for lumpectomy and [place] lymph node biopsy. POSTOPERATIVE DIAGNOSIS: Left breast ductal carcinoma in situ. Request from oncologist for lumpectomy and [place] lymph node biopsy, path pending. PROCEDURES: 1) Left breast lumpectomy with prior needle placement. 2) [place] lymph node biopsy with radio-lymphoscintigraphy left axilla. SURGEON: Dr. Lobo Green. ANESTHESIA: General. ESTIMATED BLOOD LOSS: Minimal. INDICATIONS: As noted above. Risks and benefits explained in detail and not limited to and consent obtained. DESCRIPTION OF PROCEDURE AND FINDINGS: The site is confirmed and marked. She had been to nuclear medicine and radiology and had wire placed. The wire was a little bit anterior. Her breast is marked. She is taken to the operating room. General anesthesia induced. Prepped and draped in the usual sterile fashion. After official time out and no disagreement with planned procedure, a small spindle-shaped segment of skin dissection carried down circumferentially around this wire as the wire was going directly through the left lesser tissue just to make it on the margin. Dissection carried down back to the chest wall. Specimen marked at the 12:00 position double tie, single tie at 3:00 position. Specimen passed off. Good hemostasis noted. Deeper parenchyma closed with 3-0 Vicryl, subcu closed with 3-0, skin closed with 4-0 Vicryl. Gloves and instruments were changed. At this time the probe was used in the axilla with radioscintigraphy. Transverse incision carried down. There is a chain or two of four lymph nodes. At least two of them gave reading of the 30 to 50 range. It was felt that these were hot. These nodes were slowly and carefully mobilized up staying directly on the lymph node capsule and passed off with the aid of a handheld LigaSure device staying directly on the lymph node capsule. The wound is irrigated out. Good hemostasis noted. SHANDA drain placed in the deep space out through anterior stab wound and placed to bulb suction. The hottest node gave reading about 51 and the next hottest node 33-34. The other nodes about 16 so at least three or four nodes are passed off for pathology. There are no other uptake in the remainder of the axilla. Deep subcu closed with 3-0 Vicryl, superficial subcu closed with 3-0 Vicryl, skin closed with 4-0 Vicryl. Steri-Strips and sterile dressings applied. The patient tolerated the procedure well. There were no immediate complications. Findings discussed with the family out in the waiting area.
== END 2022-02-22 17:05 | disposition home or self-care (01) ==
LOC: SDC 06:33
PROVIDERS: ATTEND Surgery
DX: D05.12 Intraductal carcinoma in situ of left breast (principal); E11.9 Type 2 diabetes mellitus without complications
CPT/HCPCS: 19281; 19301; 36415; 38525; 38792; 76098; 76937; 76942; 78195; A9541; J0690; J1100; J1885; J2250; J2370; J2405; J2704; J2795; J3010

== ENCOUNTER 2025-05-28 06:13 | Day surgery (SDC) | payer MEDICARE ==
[2025-05-28] MEDS: TETRACAINE 0.5% STERI-UNIT SOL OP ONE ×2 (06:55→06:56)
[2025-05-28] MEDS: Ak-Dilate OPHTHALMIC*** 0.71 ML, Cyclogyl 1% OPHTH SOL 0.71 ML, GATIFLOXACIN 0.5% OPHTH... OP SCH (06:57)
[2025-05-28 07:03] LABS: Calcium 9.5 mg/dL (8.4-10.2); Carbon Dioxide 26.0 mmol/L (22-30); Creatinine 1 1.01 mg/dL (0.52-1.04); EST GLOMERULAR FILTRATION RATE 58.4 ML/MIN; Glucose 122.0 mg/dL (74-106); Potassium 3.9 mmol/L (3.5-5.1)
[2025-05-28] MEDS ORDERED: propofoL IV ONE (09:22)
[2025-05-28] MEDS: ACETAZOLAMIDE 250 MG TABLET PO ONE (09:56)
[2025-05-28 10:02] VITALS: RESP 16
[2025-05-28] MEDS ORDERED: DUONEB 0.5-3 MG/3 ml Neb IH ONE (10:04)
[2025-05-28] MEDS: DUONEB 0.5-3 MG/3 ml Neb IH ONE (10:17)
[2025-05-28 10:18] VITALS: BP 130/66; PULSE 63; TEMP 96.8; O2SAT 99
[2025-05-28] MEDS ORDERED: DEXMEDETOMIDINE 80 MCG/20ML-NS IV NR (11:00)
[2025-05-28] MEDS ORDERED: TRIAMCINOLONE 15 MG/ML INJ INTRAOP NR (11:00)
[2025-05-28] MEDS ORDERED: VIGAMOX/BSS 0.15% SYR IO NR (11:00)
[2025-05-28] MEDS ORDERED: Zofran 4 MG/2 ML VIAL IV PRN (11:00)
[2025-05-28] MEDS ORDERED: DEXTENZA OP NR (11:00)
[2025-05-28] MEDS ORDERED: BETADINE 5% OPHTHALMIC 30 ML OP NR (11:00)
[2025-05-28] MEDS ORDERED: OMIDRIA 1-0.3% VIAL IO NR (11:00)
== END 2025-05-28 10:25 | disposition home or self-care (01) ==
LOC: SDC 06:13
PROVIDERS: ATTEND Ophthalmology
DX: H25.812 Combined forms of age-related cataract, left eye (principal); I10 Essential (primary) hypertension; E11.9 Type 2 diabetes mellitus without complications